=== PATIENT | female | born 1960 | race Caucasian/White ===

== ENCOUNTER 2016-09-07 09:09 | Emergency (ER) | payer OTHER ==
[2016-09-07 09:23] VITALS: BP 158/92
[2016-09-07] MEDS ORDERED: Diphtheria,Pertussis(Acell),Tetanus Vaccine 0.5 ML SDV IM ONE (09:57)
--- NOTE | 2016-09-07 10:03 | EDM.PDOC ---
ED HPI GENERAL MEDICAL PROBLEM - General Chief Complaint: Laceration Stated Complaint: FISH HOOK IN RT POINTER FINGER Time Seen by Provider: 09/07/16 09:33 Source of Information: Reports: Patient History Limitations: Reports: No Limitations - History of Present Illness INITIAL COMMENTS - FREE TEXT/NARRATIVE: This lady was fishing and went to strip picker a hook that was embedded in the carpet. Somehow she hooked her right index finger. This happened just prior to arrival. Tetanus is not up-to-date. 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 do it here/gripping and I don't be /gravidaRulon and it's basically what the strength is supposed string technique as was the pushed releases were but generally don't release the richie and there is what I did anesthetize his mucous membranes pushed the only get one chance is limited due to the second the first visit for release the richie is almost always he is pushed down cough one motion I called this) Text/Narrative:: Fish hook injury Exam Limited By: No Limitations General Appearance: Alert Extremities: Other (There is a small treble hook embedded in the medial or ulnar side of the head of the right index finger. No signs of infection. Neurovascular tendon all intact) Course - Vital Signs Last Recorded V/S: Last Vital Signs Temp 36.1 C 09/07/16 09:50 Pulse 67 09/07/16 09:50 Resp 16 09/07/16 09:50 BP 158/92 H 09/07/16 09:50 Pulse Ox 97 09/07/16 09:50 - Orders/Labs/Meds Orders: Active Orders 24 hr Category Date Time Status Vaccines to be Administered [RC] PER UNIT ROUTINE Care 09/07/16 09:57 Ordered Diphth,Pertuss(Acell),Tet Vac [Adacel] Med 09/07/16 09:57 Once 0.5 ml IM .ONCE ONE Meds: Medications Discontinued Medications Generic Name Dose Route Start Last Admin Trade Name Jennifer PRN Reason Stop Dose Admin Lidocaine HCl 5 ml 09/07/16 09:11 Xylocaine-Mpf 1% INJECT 09/07/16 09:12 ONETIME ONE - Re-Assessments/Exams Free Text/Narrative Re-Assessment/Exam: 09/07/16 09:59 Procedure: Fish hook removal. Options were reviewed with the patient either inject with lidocaine which would be painful or try a simple snatch technique. The patient chose the latter. The hook was grasped with surgical pliers and removed with a simple snatch technique. There was a little bit of bleeding this was stopped the wound was then cleaned with alcohol and a simple dressing applied. Patient received an Adacel injection. Departure - Departure Time of Disposition: 10:09 Disposition: Home, Self-Care 01 Condition: Fair Clinical Impression: Fish hook injury of index finger - Discharge Information Forms: ED Department Discharge Additional Instructions: Wash the area with soap and water twice daily. A dab of antibiotic ointment is optional. Cover with a dressing which you should keep clean and dry. Watch for any signs of infection although these injuries rarely get infected. This should heal within just a few days. - My Orders Last 24 Hours: My Active Orders 09/07/16 09:57 Vaccines to be Administered [RC] PER UNIT ROUTINE Diphth,Pertuss(Acell),Tet Vac [Adacel] 0.5 ml IM .ONCE ONE - Assessment/Plan Last 24 Hours: My Active Orders 09/07/16 09:57 Vaccines to be Administered [RC] PER UNIT ROUTINE Diphth,Pertuss(Acell),Tet Vac [Adacel] 0.5 ml IM .ONCE ONE
== END 2016-09-07 10:15 | disposition home or self-care (01) ==
LOC: JP.ED 09:09
DX: S60.450A Superficial foreign body of right index finger, initial encounter (principal); Z79.899 Other long term (current) drug therapy; I10 Essential (primary) hypertension; F41.9 Anxiety disorder, unspecified; Z87.891 Personal history of nicotine dependence; Z98.890 Other specified postprocedural states; W45.8XXA Other foreign body or object entering through skin, initial encounter
CPT/HCPCS: 90471; 90715; 99283-25